=== PATIENT | female | born 1955 | race Caucasian/White ===

== ENCOUNTER 2016-12-15 12:27 | Emergency (ER) | payer SELFPAY ==
[~2016-12-15] VITALS: Ht 170.2 cm; Wt 73.0 kg
[~2016-12-15 12:27] MED LIST: BUSP10TA8 PO; LURA40 PO
[2016-12-15 12:29] VITALS: BP 165/88; PULSE 104; RESP 20; TEMP 97.7; O2SAT 97
--- NOTE | 2016-12-15 13:14 | PD ---
HPI . Laceration left ankle Chief Complaint: Laceration/Skin Injury Time Seen by Provider: 13:13 Travel History International Travel<30 days: No Contact w/Intl Traveler<30days: No Traveled to known affect area: No History of Present Illness HPI 61-year-old female with history of hepatitis C and bipolar disorder here with complaints of left ankle laceration. Patient actually bumped into a glass picture frame on the floor and cut her left ankle. She tells me that she has pain over the laceration site and nowhere else. She is able to walk without difficulty and has full ROM of the left ankle. She is very concerned about sutures and has asked if she could have repair with skin glue or Steri-Strips. Last tetanus shot was 4 years ago. She does not have a primary care provider. PFSH Past Medical History Autoimmune Disease: No Bipolar Disorder: Yes Anxiety: Yes (Panic attacks) Depression: Yes Cerebrovascular Accident: No Diminished Hearing: No Endocrine: No Gastrointestinal Disorders: No Glaucoma: No Genitourinary: Yes Hepatitis: Yes (HEPATITIS C) Hiatal Hernia: No Hypertension: Yes Immune Disorder: No Implanted Vascular Access Dvce: No Musculoskeletal: No Neurologic: Yes Reproductive: No Respiratory: No Migraines: No Thyroid Disease: No ?: Not Menopausal: Yes : 4 Para: 4 Miscarriage: 0 : 0 Past Surgical History Abdominal Surgery: No Ear Surgery: No Eye Surgery: No Genitourinary Surgery: No Gynecologic Surgery: No Oral Surgery: Yes (per hx..WISDOM TEETH TEENAGER) Thoracic Surgery: No Other Surgery: Yes Social History Alcohol Use: Yes (socially) Tobacco Use: Yes (1PPD) Substance Use: No Allergies-Medications (Allergen,Severity, Reaction): Coded Allergies: Codeine (Verified Adverse Reaction, Severe, Nausea/Vomiting, 12/15/16) Per pt. Reported Meds & Prescriptions Reported Meds & Active Scripts Active No Active Prescriptions or Reported Medications Review of Systems General / Constitutional: No: Fever Eyes: No: Visual changes HENT: No: Headaches Cardiovascular: No: Chest Pain or Discomfort Respiratory: No: Shortness of Breath Gastrointestinal: No: Abdominal Pain Genitourinary: No: Dysuria Musculoskeletal: Positive: Pain (pain near skin of laceration) Skin: Positive Other (left ankle laceration ), No Rash Neurologic: No: Weakness Psychiatric: No: Depression Endocrine: No: Polydipsia Hematologic/Lymphatic: No: Easy Bruising Physical Exam Narrative GENERAL: AAO x 3, no acute distress, Well-nourished, well-developed patient. SKIN: Warm and dry. No visible rashes or bruising. left ankle with eclipse shaped laceration over the lateral malleolus measuring about 7 cm. Clean margins and no visible tendon, ligament or bone. Bleeding was controlled. HEAD: Normocephalic and atraumatic. EYES: No scleral icterus. No injection or drainage. ENT: No nasal drainage noted. Mucous membranes pink. Airway patent. NECK: Supple, trachea midline. No JVD. CARDIOVASCULAR: Regular rate and rhythm without murmurs, gallops, or rubs. RESPIRATORY: Breath sounds equal bilaterally. No accessory muscle use. No rhonchi or rales. GASTROINTESTINAL: Abdomen soft, non-tender, nondistended. EXTREMITIES: No cyanosis or edema. Ful ROM of left ankle.Sensation is normal. BACK: Nontender without obvious deformity. No CVA tenderness. PSYCH: AAO x 3, normal affect. LACERATION LOCATION: left ankle LENGTH: 7cm NUMBER OF STITCHES/MISHEL:12 REPAIR: The area of the laceration was prepped with Betadine and sterilely draped. The laceration was infiltrated with 1% lidocaine. The wound was copiously irrigated and explored without evidence of foreign body, tendon injury or neurovascular injury. The wound was closed using 4-0 Ethilon. This was a single layer repair. A sterile dressing was applied. The patient was advised to keep the dressing clean and dry. Patient tolerated the procedure well. Data Data Last Documented VS Vital Signs Date Time Temp Pulse Resp B/P Pulse Ox O2 Delivery O2 Flow Rate FiO2 12/15/16 12:29 97.7 104 20 165/88 97 Room Air Orders Lidocaine 1% Inj (50 Ml) (Xylocaine 1% I (12/15/16 13:30) MDM Medical Decision Making Medical Screen Exam Complete: Yes Emergency Medical Condition: Yes Medical Record Reviewed: Yes Differential Diagnosis ankle laceration, less likely tendon laceration, less likely ankle fracture Narrative Course 61-year-old female with history of hepatitis C and bipolar disorder here with complaints of left ankle laceration. Patient actually bumped into a glass picture frame on the floor and cut her left ankle. She tells me that she has pain over the laceration site and nowhere else. She is able to walk without difficulty and has full ROM of the left ankle. She is very concerned about sutures and has asked if she could have repair with skin glue or Steri-Strips. Last tetanus shot was 4 years ago. She does not have a primary care provider. Patient seen and examined. She has a significant sized laceration on her left lateral malleolus. I discussed with her that this is something that not is amenable to repair with Dermabond or Steri-Strips. She was rather understanding and decided to proceed with suture repair. 12 sutures were placed in the skin of he left lateral malleolus without incident. Patient tolerated without incident. She was advised to keep area clean with soap and water. Perform dressing changes daily. I advised return in 3-5 days for a wound check. She was advised that sutures will need to be removed in 10-14 days. Patient verbalized understanding of instructions, questions were answered, and thanked me for their care. I advised them if their condition worsens, please return to the nearest emergency room for further care. Procedures Procedure Narrative LACERATION LOCATION: left ankle LENGTH: 7cm NUMBER OF STITCHES/MISHEL:12 REPAIR: The area of the laceration was prepped with Betadine and sterilely draped. The laceration was infiltrated with 1% lidocaine. The wound was copiously irrigated and explored without evidence of foreign body, tendon injury or neurovascular injury. The wound was closed using 4-0 Ethilon. This was a single layer repair. A sterile dressing was applied. The patient was advised to keep the dressing clean and dry. Patient tolerated the procedure well. Diagnosis Primary Impression: Laceration of left ankle Qualified Code: S91.012A - Laceration of left ankle, initial encounter Patient Instructions: Acute Wound Care (ED), General Instructions, Laceration ( ED) Additional Instructions: Please return to emergency department if your symptoms return or worsen. Follow up with your primary care provider. Take medications as prescribed. Please return to the ED in 3-5 days for wound check. You will need to have the sutures removed in about 10-14 days. There were 12 sutures placed in her left ankle. [place] for signs of infection which include redness, warmth, pus drainage, swelling and/or streaking. Used Neosporin over the laceration area for the next 2 - 3 days. Perform at least daily dressing changes. Use ibuprofen as needed for pain. Scripts No Active Prescriptions or Reported Meds Disposition: 01 DISCHARGE HOME Condition: Stable Mellisa Ponce Dec 15, 2016 13:13
[2016-12-15] MEDS ORDERED: LIDOCAINE HCL 1% 50 ML VIAL INFIL ONE (13:30)
== END 2016-12-15 14:57 | disposition home or self-care (01) ==
LOC: NEPB 12:27
DX: S91.012A Laceration without foreign body, left ankle, initial encounter (principal); F31.9 Bipolar disorder, unspecified; F41.8 Other specified anxiety disorders; F17.210 Nicotine dependence, cigarettes, uncomplicated; I10 Essential (primary) hypertension; Z86.19 Personal history of other infectious and parasitic diseases
CPT/HCPCS: 12002

== ENCOUNTER 2017-05-31 23:47 | Emergency (ER) | payer OTHER ==
[~2017-05-31] VITALS: Ht 170.2 cm; Wt 70.0 kg
[2017-05-31 23:53] VITALS: BP 129/88; PULSE 101; RESP 18; TEMP 97.7; O2SAT 97
[2017-06-01 00:09] VITALS: BP 115/59; PULSE 82; RESP 18; TEMP 97.6; O2SAT 94
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
[2017-06-01 00:48] LABS: BACTERIA, URINE FEW /hpf; BLOOD, URINE SMALL (NEG); COMMENT (UR) CULT NOT INDICATED; CULTURE IF INDICATED CULT NOT INDICATED; GLUCOSE,URINE NEG (NEG); KETONE, URINE NEG (NEG); NITRITE,URINE NEG (NEG); RENAL EPITHELIAL CELLS 1 /hpf; SQUAMOUS EPITHELIAL CELL URINE 5 /hpf (0-5); URINE COLOR LIGHT-YELLOW (YELLW/STRAW)
[2017-06-01 08:22] VITALS: BP 144/78; PULSE 78; RESP 20; O2SAT 96
[2017-06-01 11:58] VITALS: BP 135/84; PULSE 75; RESP 17; O2SAT 95
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
[2017-06-01 15:08] VITALS: BP 144/79; PULSE 77; RESP 17; O2SAT 95
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
== END 2017-06-01 16:12 | disposition home or self-care (01) ==
LOC: NEPD 23:47
DX: F10.129 Alcohol abuse with intoxication, unspecified (principal); F17.200 Nicotine dependence, unspecified, uncomplicated
CPT/HCPCS: 80307; 81001; 99284